=== PATIENT | male | born 1995 | race Caucasian/White ===

== ENCOUNTER 2018-07-22 20:19 | Emergency (ER) | payer OTHER ==
[~2018-07-22] VITALS: Ht 172.7 cm; Wt 86.2 kg
[2018-07-22 20:24] VITALS: BP_SYST 151
[2018-07-22] MEDS ORDERED: LIDOCAINE/PRILOCAINE 5 GM CREAM (EMLA) TP ONE (20:30)
[2018-07-22] MEDS ORDERED: BACITRACIN 1 GM OINT TP ONE ×2 (21:59→22:00)
[2018-07-22 22:15] VITALS: BP_SYST 143
== END 2018-07-22 22:15 | disposition home or self-care (01) ==
LOC: SED 20:19
DX: K61.0 Anal abscess (principal); R03.0 Elevated blood-pressure reading, without diagnosis of hypertension
CPT/HCPCS: 99283; 99284

== ENCOUNTER 2018-09-18 00:11 | Inpatient (IN) | payer OTHER ==
[~2018-09-18] VITALS: Ht 175.3 cm; Wt 89.8 kg
[2018-09-18] VITALS (7 sets, daily range): BP systolic 118–138
[2018-09-18] MEDS ORDERED: NACL 0.9% 1,000 ML IV ONE ×2 (01:47→04:45)
[2018-09-18] MEDS ORDERED: MORPHINE 4 MG/ML INJ. SYRINGE IVP ONE ×2 (02:00→04:45)
[2018-09-18] MEDS ORDERED: ONDANSETRON HCL 4 MG/2 ML VIAL IVP ONE (02:00)
[2018-09-18 02:26] LABS: BILIRUBIN,URINE NEGATIVE (NEGATIVE); BLOOD, URINE TRACE (NEGATIVE); CLARITY/URINE CLEAR (CLEAR); COLOR,URINE YELLOW (YELLOW); GLUCOSE,URINE NEGATIVE (NEGATIVE); KETONES,URINE NEGATIVE (NEGATIVE); LEUKOCYTE ESTERASE ,URINE NEGATIVE (NEGATIVE); NITRITE, URINE NEGATIVE (NEGATIVE); PH,URINE 6.5 (5.0-8.0); PROTEIN URINE NEGATIVE (NEGATIVE)
[2018-09-18 02:27] LABS: UROBILINOGEN,URINE 0.2 (0.2-1.0)
[2018-09-18 02:28] LABS: BACTERIA,URINE FEW /HPF (None Seen); RBC,URINE 0-3 /HPF (0-3); WBC,URINE 0-3 /HPF (0-3)
[2018-09-18 02:37] LABS: HEMATOCRIT 48.5 % (36-54); HEMOGLOBIN 15.6 g/dL (14.0-18.0); MEAN CORPUSCULAR HEMOGLOBIN 26 pg (27-31); MEAN CORPUSCULAR HGB CONC 32 % (32-36); MEAN CORPUSCULAR VOLUME 80 fL (79.0-98.0); PLATELET COUNT (AUTO) 311 K/uL (130-430); RED BLOOD CELL COUNT(AUTO) 6.04 MIL/uL (4.2-6.2); RED CELL DISTRIBUTION WIDTH 13.2 % (9.0-15.0)
[2018-09-18 02:38] LABS: BASOPHILS # (AUTO) 0.1 K/uL (0.0-0.2); BASOPHILS % (AUTO) 0.6 % (0.0-2.0); EOSINOPHILS # (AUTO) 0.2 K/uL (0.0-0.4); EOSINOPHILS % (AUTO) 1.6 % (0.0-4.0); LYMPHOCYTES # (AUTO) 2.4 K/uL (1.0-5.5); LYMPHOCYTES % (AUTO) 18.2 % (20.5-51.5); MONOCYTES # (AUTO) 0.8 K/uL (0.0-1.0); MONOCYTES % (AUTO) 6.4 % (1.7-9.3); NEUTROPHILS # (AUTO) 9.5 K/uL (1.8-7.7); NEUTROPHILS % (AUTO) 73.2 % (40.0-70.0)
[2018-09-18 02:44] LABS: POTASSIUM 3.6 mmol/L (3.5-5.1)
[2018-09-18 02:45] LABS: ALBUMIN 4.2 g/dL (3.4-4.8); CALCIUM 9.2 mg/dL (8.4-11.0); CREATININE 1.13 mg/dL (0.55-1.30); TOTAL BILIRUBIN 0.3 mg/dL (0.0-1.0)
[2018-09-18 02:53] LABS: PROTHROMBIN TIME 10.2 SECS (9.5-12.5)
[2018-09-18] MEDS ORDERED: IOHEXOL 100 ML IV ONE (03:10)
[2018-09-18] MEDS ORDERED: PIPERACILLIN/TAZO 3.375 GM in NS 50 ML IV ONE (04:45)
[2018-09-18] MEDS ORDERED: PIPERACILLIN/TAZOBACTAM 3.375 GM/VIAL (ZOSYN) IV ONE ×2 (05:10)
[2018-09-18] MEDS ORDERED: NACL 0.9% 1,000 ML IV SCH (05:28)
[2018-09-18] MEDS ORDERED: MORPHINE 4 MG/ML INJ. SYRINGE IVP PRN ×2 (05:30→07:30)
[2018-09-18] MEDS ORDERED: ACETAMINOPHEN 325 MG TABLET PO PRN ×2 (05:30→08:00)
[2018-09-18] MEDS ORDERED: ONDANSETRON HCL 4 MG/2 ML VIAL IVP PRN ×3 (05:30→08:00)
[2018-09-18] MEDS ORDERED: fentaNYL CITRATE/PF 100 MCG/2 ML AMP IVP PRN (08:00)
[2018-09-18] MEDS ORDERED: KETOROLAC TROMETHAMINE 30 MG VIAL IVP PRN (08:00)
[2018-09-18] MEDS ORDERED: BUPIVACAINE /PF 0.25% 30 ML VIAL INJ ONE (08:05)
[2018-09-18] MEDS ORDERED: ROCURONIUM BROMIDE 10 MG/ML (ZEMURON) ONE (08:05)
[2018-09-18] MEDS ORDERED: MIDAZOLAM HCL 5 MG/ML VIAL (VERSED) IV ONE (08:05)
[2018-09-18] MEDS ORDERED: LR 1,000 ML IV.SOLN IV ONE (08:05)
[2018-09-18] MEDS ORDERED: fentaNYL CITRATE/PF 100 MCG/2 ML AMP ONE ×2 (08:05→08:28)
[2018-09-18] MEDS ORDERED: KETOROLAC TROMETHAMINE 30 MG VIAL ONE (08:05)
[2018-09-18] MEDS ORDERED: NS IRRIG SOLN 1000 ML IR ONE (08:05)
[2018-09-18] MEDS ORDERED: SEVOFLURANE 15 MIN GAS INH ONE (08:05)
[2018-09-18] MEDS ORDERED: PROPOFOL 200MG/ 20ML VIAL (DIPRIVAN) IV ONE (08:05)
[2018-09-18] MEDS: fentaNYL CITRATE/PF 100 MCG/2 ML AMP IVP PRN ×2 (08:22→08:34)
[2018-09-18] MEDS: HYDROmorphone 1 MG INJ. 1 MG/ML AMPUL IVP PRN ×2 (09:05→17:23)
[2018-09-18] MEDS: NACL 0.9% 1,000 ML IV SCH ×2 (09:55→21:46)
[2018-09-18] MEDS: metroNIDAZOLE 500 mg/NS 100 ML IV SCH ×2 (10:18→17:24)
[2018-09-18] MEDS: CEFAZOLIN 2 GM IVPB PREMIX 50 ML IV SCH ×2 (10:18→17:23)
[2018-09-18] MEDS ORDERED: PIPERACILLIN/TAZO 3.375/DEX-IS 50 ML IV SCH (12:00)
[2018-09-19] VITALS: BP_SYST 124
[2018-09-19] MEDS: HYDROcodone/ACETAMIN 5-325 MG TAB (NORCO/ VICODIN) PO PRN ×2 (01:11→09:04)
[2018-09-19] MEDS: NACL 0.9% 1,000 ML IV SCH ×2 (03:52→09:03)
[2018-09-19 08:45] VITALS: BP_SYST 143
[2018-09-19 08:51] LABS: HEMATOCRIT 41.2 % (36-54); HEMOGLOBIN 13.7 g/dL (14.0-18.0); MEAN CORPUSCULAR VOLUME 80 fL (79.0-98.0); RED BLOOD CELL COUNT(AUTO) 5.12 MIL/uL (4.2-6.2); WHITE BLOOD COUNT (AUTO) 8.7 K/uL (4.8-10.8)
[2018-09-19 08:52] LABS: LYMPHOCYTES % (AUTO) 26.4 % (20.5-51.5); MEAN CORPUSCULAR HEMOGLOBIN 27 pg (27-31); MEAN CORPUSCULAR HGB CONC 33 % (32-36); NEUTROPHILS % (AUTO) 61.1 % (40.0-70.0); PLATELET COUNT (AUTO) 268 K/uL (130-430); RED CELL DISTRIBUTION WIDTH 12.8 % (9.0-15.0)
[2018-09-19 08:53] LABS: BASOPHILS % (AUTO) 0.5 % (0.0-2.0); CALCIUM 8.5 mg/dL (8.4-11.0); CREATININE 0.76 mg/dL (0.55-1.30); EOSINOPHILS # (AUTO) 0.2 K/uL (0.0-0.4); EOSINOPHILS % (AUTO) 2.8 % (0.0-4.0); LYMPHOCYTES # (AUTO) 2.3 K/uL (1.0-5.5); MONOCYTES # (AUTO) 0.8 K/uL (0.0-1.0); MONOCYTES % (AUTO) 9.2 % (1.7-9.3); NEUTROPHILS # (AUTO) 5.4 K/uL (1.8-7.7); POTASSIUM 3.7 mmol/L (3.5-5.1); TOTAL BILIRUBIN 0.6 mg/dL (0.0-1.0)
[2018-09-19 08:54] LABS: ALBUMIN 3.3 g/dL (3.4-4.8)
[2018-09-19 10:23] VITALS: BP_SYST 143
== END 2018-09-19 11:05 | disposition home or self-care (01) | DRG 342 ==
LOC: SED 00:11 → SMU 05:28
PROVIDERS: ADMIT Internal Medicine; ATTEND Internal Medicine
PROC: 0DTJ4ZZ Resection of Appendix, Percutaneous Endoscopic Approach (ICD-10-PCS; principal; 2018-09-18 07:00)
DX: K35.80 Unspecified acute appendicitis (principal); R65.10 Systemic inflammatory response syndrome (SIRS) of non-infectious origin without acute organ dysfunction; I10 Essential (primary) hypertension
CPT/HCPCS: 36415; 80053; 81000-TC; 82150-TC; 83690-TC; 85025; 85610-TC; 87040-TC; 87081; 88304; 90656; 96361; 96365; 96375; 96376; 99285; C1727; J0690; J1170; J1885; J2250; J2270; J2405; J2543; J2704; J3010; J3490; J7030; J7120; Q9967

== ENCOUNTER 2020-09-17 23:34 | Emergency (ER) | payer BC, OTHER ==
[~2020-09-17] VITALS: Ht 172.7 cm; Wt 95.3 kg
[2020-09-17 23:40] VITALS: BP_SYST 143
--- NOTE | 2020-09-17 23:50 | NUR ---
Patient to tent for evaluation. Side rails up. Report given to Francy TAFOYA.
--- NOTE | 2020-09-18 00:01 | NUR ---
ED MD ENRIQUE AT BEDSIDE EXAMINING PT
[2020-09-18] MEDS ORDERED: KETOROLAC TROMETHAMINE 30 MG VIAL ONE (00:25)
[2020-09-18 00:28] LABS: MEAN CORPUSCULAR HEMOGLOBIN 26 pg (27-31); WHITE BLOOD COUNT (AUTO) 12.4 K/uL (4.8-10.8)
[2020-09-18] MEDS ORDERED: KETOROLAC TROMETHAMINE 30 MG VIAL IM ONE (00:30)
[2020-09-18 00:32] LABS: BASOPHILS # (AUTO) 0.1 K/uL (0.0-0.2); BASOPHILS % (AUTO) 0.7 % (0.0-2.0); EOSINOPHILS # (AUTO) 0.2 K/uL (0.0-0.4); EOSINOPHILS % (AUTO) 1.8 % (0.0-4.0); HEMATOCRIT 46.5 % (36-54); HEMOGLOBIN 15.5 g/dL (14.0-18.0); LYMPHOCYTES # (AUTO) 3.4 K/uL (1.0-5.5); LYMPHOCYTES % (AUTO) 27.3 % (20.5-51.5); MEAN CORPUSCULAR HGB CONC 33 % (32-36); MEAN CORPUSCULAR VOLUME 79 fL (79.0-98.0); MONOCYTES # (AUTO) 1.3 K/uL (0.0-1.0); MONOCYTES % (AUTO) 10.2 % (1.7-9.3); NEUTROPHILS # (AUTO) 7.4 K/uL (1.8-7.7); PLATELET COUNT (AUTO) 290 K/uL (130-430); RED BLOOD CELL COUNT(AUTO) 5.87 MIL/uL (4.2-6.2)
[2020-09-18 00:43] LABS: CREATININE 1.18 mg/dL (0.55-1.30); POTASSIUM 3.8 mmol/L (3.5-5.1)
[2020-09-18 00:45] LABS: PROTHROMBIN TIME 10.1 SECS (9.5-12.5)
[2020-09-18 00:49] LABS: ALBUMIN 4.4 g/dL (3.4-4.8); TOTAL BILIRUBIN 0.4 mg/dL (0.0-1.0)
[2020-09-18 02:57] LABS: BILIRUBIN,URINE NEGATIVE (NEGATIVE); BLOOD, URINE 1+ (NEGATIVE); CLARITY/URINE CLEAR (CLEAR); COLOR,URINE YELLOW (YELLOW); GLUCOSE,URINE NEGATIVE (NEGATIVE); KETONES,URINE NEGATIVE (NEGATIVE); LEUKOCYTE ESTERASE ,URINE NEGATIVE (NEGATIVE); NITRITE, URINE NEGATIVE (NEGATIVE); PROTEIN URINE NEGATIVE (NEGATIVE); UROBILINOGEN,URINE 0.2 (0.2-1.0)
[2020-09-18 03:10] LABS: BACTERIA,URINE FEW /HPF (None Seen); WBC,URINE 0-3 /HPF (0-3)
[2020-09-18 05:04] VITALS: BP_SYST 143
--- NOTE | 2020-09-18 05:04 | NUR ---
Patient given written and verbal discharge instructions and verbalizes understanding. ER MD ENRIQUE discussed with patient the results and treatment provided. Patient in stable condition. ID arm band removed. IV catheter removed intact and dressing applied, no active bleeding. Rx of BACTRIM, KEFLEX given. Patient educated on pain management and to follow up with PMD. Pain Scale 0/10 Opportunity for questions provided and answered. Medication side effect fact sheet provided.
== END 2020-09-18 05:04 | disposition home or self-care (01) ==
LOC: SED 23:34
DX: L01.00 Impetigo, unspecified (principal)
CPT/HCPCS: 36415; 74176; 76376; 80053; 81000; 82150; 83690; 85025; 85610; 96372; 99284; J1885